=== PATIENT | female | born 1980 | race Caucasian/White ===

== ENCOUNTER 2016-08-12 19:46 | Inpatient (IN) | payer OTHER ==
[2016-08-12] MEDS ORDERED: DILTIAZEM 125 MG in SODIUM CHLORIDE 0.9% 100 ML IV ONE (19:59)
[2016-08-12] MEDS ORDERED: DILTIAZEM 5 MG/ML 5 ML VIAL IVP STA (20:03)
--- NOTE | 2016-08-12 20:03 | ED ---
General Adult HPI - General Source: patient, EMS, RN notes reviewed Mode of arrival: EMS Limitations: no limitations <Maximus Jean - Last Filed: 08/12/16 20:41> <Timmy De Los Santos - Last Filed: 08/12/16 23:57> - General Chief complaint: Arrhythmia/Palpitations Stated complaint: Palpitations Time Seen by Provider: 08/12/16 19:46 - History of Present Illness Initial comments: this is a 35-year-old female who has a past medical history significant for some sinus tachycardia but has not expressed.. Patient states she comes into the emergency department today because her heart was racing very fast. Patient states she has been vomiting and having diarrhea all day long today. Patient denies any fever chills. Patient denies any excess caffeine intake. Patient denies any illegal drugs. Patient denies any chest pain. Patient states she somewhat short of breath and does feel mildly lightheaded. Patient denies any nausea currently. Patient denies any abdominal pain. (Maximus Jean) - Related Data Home Medications Medication Instructions Recorded Confirmed Aspirin [Adult Low Dose Aspirin EC] 324 mg PO ONCE PRN 08/12/16 08/12/16 Allergies Allergy/AdvReac Type Severity Reaction Status Date / Time No Known Allergies Allergy Verified 08/12/16 20:14 Review of Systems ROS Other: All systems not noted in ROS Statement are negative. <Maximus Jean - Last Filed: 08/12/16 20:41> ROS Other: All systems not noted in ROS Statement are negative. <Timmy De Los Santos - Last Filed: 08/12/16 23:57> ROS Statement: Those systems with pertinent positive or pertinent negative responses have been documented in the HPI. Past Medical History Additional Past Medical History / Comment(s): tachycardia History of Any Multi-Drug Resistant Organisms: None Reported Past Surgical History: Section Past Psychological History: No Psychological Hx Reported Smoking Status: Never smoker Past Alcohol Use History: Occasional Past Drug Use History: None Reported <Maximus Jean - Last Filed: 08/12/16 20:41> General Exam Limitations: no limitations <Maximus Jean - Last Filed: 08/12/16 20:41> <Timmy De Los Santos - Last Filed: 08/12/16 23:57> - General Exam Comments Initial Comments: GENERAL: Patient is well-developed and well-nourished. Patient is nontoxic and well- hydrated and is in milddistress. ENT: Neck is soft and supple. No significant lymphadenopathy is noted. Oropharynx is clear. Moist mucous membranes. Neck has full range of motion without eliciting any pain. EYES: The sclera were anicteric and conjunctiva were pink and moist. Extraocular movements were intact and pupils were equal round and reactive to light. Eyelids were unremarkable. PULMONARY: Unlabored respirations. Good breath sounds bilaterally. No audible rales rhonchi or wheezing was noted. CARDIOVASCULAR: patient is tachycardic at about 170 beats a minute and heart rate is irregular ABDOMEN: Soft and nontender with normal bowel sounds. No palpable organomegaly was noted. There is no palpable pulsatile mass. SKIN: Skin is clear with no lesions or rashes and otherwise unremarkable. NEUROLOGIC: Patient is alert and oriented x3. Cranial nerves II through XII are grossly intact. Motor and sensory are also intact. Normal speech, volume and content. Symmetrical smile. MUSCULOSKELETAL: Normal extremities with adequate strength and full range of motion. No lower extremity swelling or edema. No calf tenderness. LYMPHATICS: No significant lymphadenopathy is noted PSYCHIATRIC: Normal psychiatric evaluation. Normal interpersonal interactions appears functionally intact in deals appropriately with others. No signs of depression. patient is mildly anxious (Maximus Jean) Medical Decision Making - Lab Data Result diagrams: 08/12/16 19:56 <Maximus Jean - Last Filed: 08/12/16 20:41> - Lab Data Result diagrams: 08/12/16 19:56 08/12/16 19:56 <Timmy De Los Santos - Last Filed: 08/12/16 23:57> - Medical Decision Making EKG shows atrial fibrillation with rapid ventricular response with occasional PVCs at a rate of 205 bpm QRS is under 48 QT interval is 224 QTC is 414. I started the patient on Cardizem after I gave the patient a 10 mg IV bolus of Cardizem. Dr. Perry will be taking over the care of this patient at 9 PM. (aMximus Jean ) I receive this patient as a sign out, pending the lab studies. I discussed results with the patient and family. I have arranged admission. Patient also to have supplementation of the electrolyte abnormalities. Patient feels better following medications here, though rate is not fully controlled yet. Will give another small bolus of Cardizem. (Timmy De Los Santos) - Lab Data Lab Results 08/12/16 08/12/16 08/12/16 Range/Units 19:56 19:56 19:56 WBC 8.6 (3.8-10.6) k/uL RBC 5.27 (3.80-5.40) m/uL Hgb 16.3 H (11.4-16.0) gm/dL Hct 47.9 H (34.0-46.0) % MCV 90.9 (80.0-100.0) fL MCH 31.0 (25.0-35.0) pg MCHC 34.1 (31.0-37.0) g/dL RDW 12.5 (11.5-15.5) % Plt Count 256 (150-450) k/uL Neutrophils % 82 % Lymphocytes % 12 % Monocytes % 3 % Eosinophils % 1 % Basophils % 0 % Neutrophils # 7.1 (1.3-7.7) k/uL Lymphocytes # 1.0 (1.0-4.8) k/uL Monocytes # 0.3 (0-1.0) k/uL Eosinophils # 0.1 (0-0.7) k/uL Basophils # 0.0 (0-0.2) k/uL PT (9.0-12.0) sec INR (<1.1) APTT (22.0-30.0) sec Sodium 142 (137-145) mmol/L Potassium 3.4 L (3.5-5.1) mmol/L Chloride 112 H (98-107) mmol/L Carbon Dioxide 13 L (22-30) mmol/L Anion Gap 17 mmol/L BUN 12 (7-17) mg/dL Creatinine 0.70 (0.52-1.04) mg/dL Est GFR (MDRD) Af Amer >60 (>60 ml/min/1.73 sqM) Est GFR (MDRD) Non-Af >60 (>60 ml/min/1.73 sqM) Glucose 119 H (74-99) mg/dL Calcium 9.0 (8.4-10.2) mg/dL Magnesium 1.5 L (1.6-2.3) mg/dL Total Bilirubin 0.9 (0.2-1.3) mg/dL AST 27 (14-36) U/L ALT 34 (9-52) U/L Alkaline Phosphatase 80 (38-126) U/L Total Creatine Kinase 94 (30-135) U/L CK-MB (CK-2) 1.0 (0.0-2.4) ng/mL CK-MB (CK-2) Rel Index 1.1 Troponin I <0.012 (0.000-0.034) ng/mL Total Protein 7.4 (6.3-8.2) g/dL Albumin 4.4 (3.5-5.0) g/dL TSH 1.930 (0.465-4.680) mIU/L Free T4 1.64 (0.78-2.19) ng/dL Urine Opiates Screen (NotDetected) Ur Oxycodone Screen (NotDetected) Urine Methadone Screen (NotDetected) Ur Propoxyphene Screen (NotDetected) Ur Barbiturates Screen (NotDetected) U Tricyclic Antidepress (NotDetected) Ur Phencyclidine Scrn (NotDetected) Ur Amphetamines Screen (NotDetected) U Methamphetamines Scrn (NotDetected) U Benzodiazepines Scrn (NotDetected) Urine Cocaine Screen (NotDetected) U Marijuana (THC) Screen (NotDetected) 08/12/16 08/12/16 Range/Units 19:56 19:56 WBC (3.8-10.6) k/uL RBC (3.80-5.40) m/uL Hgb (11.4-16.0) gm/dL Hct (34.0-46.0) % MCV (80.0-100.0) fL MCH (25.0-35.0) pg MCHC (31.0-37.0) g/dL RDW (11.5-15.5) % Plt Count (150-450) k/uL Neutrophils % % Lymphocytes % % Monocytes % % Eosinophils % % Basophils % % Neutrophils # (1.3-7.7) k/uL Lymphocytes # (1.0-4.8) k/uL Monocytes # (0-1.0) k/uL Eosinophils # (0-0.7) k/uL Basophils # (0-0.2) k/uL PT 10.6 (9.0-12.0) sec INR 1.0 (<1.1) APTT 22.9 (22.0-30.0) sec Sodium (137-145) mmol/L Potassium (3.5-5.1) mmol/L Chloride (98-107) mmol/L Carbon Dioxide (22-30) mmol/L Anion Gap mmol/L BUN (7-17) mg/dL Creatinine (0.52-1.04) mg/dL Est GFR (MDRD) Af Amer (>60 ml/min/1.73 sqM) Est GFR (MDRD) Non-Af (>60 ml/min/1.73 sqM) Glucose (74-99) mg/dL Calcium (8.4-10.2) mg/dL Magnesium (1.6-2.3) mg/dL Total Bilirubin (0.2-1.3) mg/dL AST (14-36) U/L ALT (9-52) U/L Alkaline Phosphatase (38-126) U/L Total Creatine Kinase (30-135) U/L CK-MB (CK-2) (0.0-2.4) ng/mL CK-MB (CK-2) Rel Index Troponin I (0.000-0.034) ng/mL Total Protein (6.3-8.2) g/dL Albumin (3.5-5.0) g/dL TSH (0.465-4.680) mIU/L Free T4 (0.78-2.19) ng/dL Urine Opiates Screen Not Detected (NotDetected) Ur Oxycodone Screen Not Detected (NotDetected) Urine Methadone Screen Not Detected (NotDetected) Ur Propoxyphene Screen Not Detected (NotDetected) Ur Barbiturates Screen Not Detected (NotDetected) U Tricyclic Antidepress Not Detected (NotDetected) Ur Phencyclidine Scrn Not Detected (NotDetected) Ur Amphetamines Screen Not Detected (NotDetected) U Methamphetamines Scrn Not Detected (NotDetected) U Benzodiazepines Scrn Not Detected (NotDetected) Urine Cocaine Screen Not Detected (NotDetected) U Marijuana (THC) Screen Not Detected (NotDetected) Disposition <Jean,Maximus - Last Filed: 08/12/16 20:41> <Timmy De Los Santos - Last Filed: 08/12/16 23:57> Clinical Impression: Atrial fibrillation, Hypomagnesemia, Hypokalemia Disposition: ADMITTED IP TO THIS HOSP Condition: Fair Referrals: Nonstaff,Physician [REFERRING] - 1-2 days
[2016-08-12] MEDS ORDERED: SODIUM CHLORIDE 0.9% 1,000 ML IV ONE (20:06)
[2016-08-12] MEDS ORDERED: DIPH,PERTUS(ACELL)TETVAC-LF 0.5 ML VIAL IM ONE (20:07)
[2016-08-12] MEDS ORDERED: ceFAZolin 1,000 MG in DEXTROSE/WATER 1 50ML.BAG IVPB STA (20:07)
[2016-08-12 20:33] LABS: Basophils % (A) 0 %; CH 31.8; CHCM 35.1; Eosinophils # (A) 0.1 k/uL (0-0.7); Eosinophils % (A) 1 %; HCT 47.9 % (34.0-46.0); HDW 2.52; HGB 16.3 gm/dL (11.4-16.0); Luc # (Auto) 0.15; Luc % (Auto) 2; Lymphocytes % (A) 12 %; MCHC 34.1 g/dL (31.0-37.0); MCV 90.9 fL (80.0-100.0); Mean Platelet Volume 7.3; Monocytes # (A) 0.3 k/uL (0-1.0); Monocytes % (A) 3 %; Neutrophils # (A) 7.1 k/uL (1.3-7.7); Neutrophils % (A) 82 %; RBC 5.27 m/uL (3.80-5.40); RDW 12.5 % (11.5-15.5); WBC 8.6 k/uL (3.8-10.6); WBC (Perox) 8.26
[2016-08-12 20:45] LABS: ALT 34 U/L (9-52); AST 27 U/L (14-36); Alkaline Phosphatase 80 U/L (38-126); Anion Gap 17 mmol/L; Blood Urea Nitrogen 12 mg/dL (7-17); Carbon Dioxide 13 mmol/L (22-30); Chloride 112 mmol/L (98-107); Glucose 119 mg/dL (74-99); Magnesium 1.5 mg/dL (1.6-2.3); Non-African American GFR(MDRD) >60 (>60 ml/min/1.73 sqM); Potassium 3.4 mmol/L (3.5-5.1); Sodium 142 mmol/L (137-145); Total Bilirubin 0.9 mg/dL (0.2-1.3); Total Protein 7.4 g/dL (6.3-8.2)
[2016-08-12 20:46] LABS: Partial Thromboplastin Time 22.9 sec (22.0-30.0); Prothrombin Time 10.6 sec (9.0-12.0)
[2016-08-12 21:10] LABS: Creatine Kinase 94 U/L (30-135)
[2016-08-12] MEDS ORDERED: HEPARIN SODIUM,PORCINE 5,000 UNIT/ML 1 ML VIAL IV ONE (21:11)
--- NOTE | 2016-08-12 21:14 | XR ---
EXAMINATION TYPE: XR chest 2V DATE OF EXAM: 08/12/2016 8:58 PM COMPARISON: NONE HISTORY: Chest pain TECHNIQUE: Frontal and lateral views of the chest are obtained. FINDINGS: There is no focal air space opacity. No evidence for pnuemothorax.No pleural effusion. The cardiac silhouette size is within normal limits. The osseous structures are grossly intact. IMPRESSION: 1. No acute cardiopulmonary process.
[2016-08-12] MEDS ORDERED: HEPARIN SODIUM,PORCINE/D5W PMX 25,000 UNIT in DEXTROSE/WATER 1 500ML.BAG IV SCH (21:15)
[2016-08-12 21:23] LABS: Troponin I <0.012 ng/mL (0.000-0.034)
[2016-08-12] MEDS ORDERED: MAGNESIUM SULFATE-D5W PMX 1 GM in DEXTROSE/WATER 1 100ML.BAG IVPB ONE (22:57)
[2016-08-12] MEDS ORDERED: POTASSIUM BICARB-CITRIC ACID 25 MEQ TABLET.EFF PO STA (22:57)
[2016-08-12] MEDS ORDERED: NITROGLYCERIN SL TABS 0.4 MG TAB SUBLINGUAL PRN (23:51)
[2016-08-13 01:11] VITALS: BMI 27.4
[2016-08-13 03:13] LABS: Creatine Kinase MB 1.1 ng/mL (0.0-2.4)
[2016-08-13 03:20] LABS: Troponin I 0.037 ng/mL (0.000-0.034)
[2016-08-13] MEDS: SODIUM CHLORIDE 0.9% 1,000 ML IV SCH ×3 (06:24→11:24)
[2016-08-13 07:20] LABS: Cholesterol 139 mg/dL (<200); HDL Cholesterol 64 mg/dL (40-60); Triglycerides 78 mg/dL (<150)
[2016-08-13 07:30] LABS: Creatine Kinase MB 0.9 ng/mL (0.0-2.4)
[2016-08-13 07:34] LABS: Troponin I 0.039 ng/mL (0.000-0.034)
[2016-08-13] MEDS ORDERED: MAGNESIUM OXIDE 400 MG TAB PO SCH (09:00)
[2016-08-13] MEDS ORDERED: POTASSIUM CHLORIDE ER 20 MEQ TAB.ER PO SCH (09:00)
[2016-08-13] MEDS ORDERED: ASPIRIN 325 MG TAB PO SCH (09:00)
[2016-08-13 10:35] LABS: Anion Gap 10 mmol/L; Blood Urea Nitrogen 10 mg/dL (7-17); Calcium 8.1 mg/dL (8.4-10.2); Carbon Dioxide 16 mmol/L (22-30); Chloride 112 mmol/L (98-107); Glucose 97 mg/dL (74-99); Non-African American GFR(MDRD) >60 (>60 ml/min/1.73 sqM); Potassium 4.2 mmol/L (3.5-5.1); Sodium 138 mmol/L (137-145)
[2016-08-13 10:39] LABS: Basophils % (A) 0 %; CH 31.4; CHCM 33.9; Eosinophils # (A) 0.1 k/uL (0-0.7); Eosinophils % (A) 2 %; HDW 2.49; HGB 14.8 gm/dL (11.4-16.0); Luc # (Auto) 0.14; Luc % (Auto) 2; Lymphocytes # (A) 1.2 k/uL (1.0-4.8); Lymphocytes % (A) 19 %; MCH 31.3 pg (25.0-35.0); MCHC 33.7 g/dL (31.0-37.0); MCV 92.8 fL (80.0-100.0); Mean Platelet Volume 7.5; Monocytes # (A) 0.5 k/uL (0-1.0); Monocytes % (A) 8 %; Neutrophils # (A) 4.3 k/uL (1.3-7.7); Neutrophils % (A) 68 %; RBC 4.74 m/uL (3.80-5.40); RDW 12.3 % (11.5-15.5); WBC 6.3 k/uL (3.8-10.6)
[2016-08-13] MEDS ORDERED: FLECAINIDE 50 MG TAB PO STA (10:56)
[2016-08-13] MEDS ORDERED: ENOXAPARIN 80 MG/0.8 ML SYRINGE SQ STA (10:57)
--- NOTE | 2016-08-13 11:23 | CONS ---
DATE OF CONSULTATION: Monica Tony is a 35-year-old female who started experiencing abdominal discomfort, crampy, nausea and vomiting and retching. After doing this several times, she started experiencing palpitations. She is not sure if she came down with a viral syndrome or not (GI). When her heart started to race, she called EMS and came into the hospital. She was found to be in atrial fibrillation with a rapid ventricular response at 205 beats per minute, narrow QRS. Her hemoglobin is normal. White count is normal, potassium is 3.4, bicarb 13, troponins are borderline. TSH is normal. She was started on IV heparin and on rate control medications, Cardizem and monitored overnight. This morning when I spoke to her she stated that she would get tachycardia as a teenager and the episodes would last only 15 to 20 minutes. Every time she would go to the hospital, she would be in normal rhythm and therefore no diagnoses ever made, except on an event monitor, but she did not have any treatment for it nor did she have any radiofrequency ablation performed. This was diagnosis in [facility] by ( ). PAST HISTORY: She denies hypertension, diabetes, dyslipidemia, DVT, any thyroid problems. Family history of atrial fibrillation. Both her grandparents have atrial fibrillation. Her parents do not have atrial fibrillation or SVT. REVIEW OF SYSTEMS: No fever, chills, or rigors. No cough or expectoration. She did have nausea, vomiting, retching and abdominal discomfort. No hematuria or dysuria. No strokes or seizure. No skin lesions or musculoskeletal complaints. On examination, she is resting comfortably in bed. She has actually converted to sinus rhythm now spontaneously, before she could flecainide. She is afebrile, 97.2, pulse rate is107 beats a minute. She is now in sinus rhythm. Head and neck examination are normal. Heart sounds are normal. No murmurs or gallops. Lungs are clear to auscultation. Extremities are warm. No edema. IMPRESSION: 1. Paroxysmal atrial fibrillation lasting for less than 24 hours, spontaneous conversion, before flecainide could be given. 2. History of supraventricular tachycardia, short runs as a teenager, but she has not had any recent supraventricular tachycardia. 3. LILLIAN-VASC score is 1 (female gender). SUGGEST: I would still like to test her with flecainide 150 mg p.o. x1 dose, get a 12-lead ECG about 2 to 3 hours later to make it is normal and then discharge her home. Heparin and diltiazem could be stopped. She could be given a dose of Lovenox 80 mg x1, but she does not need long-term anticoagulation. Her atrial fibrillation lasts for less than 24 hours. I had a detailed discussion with her regarding the management of atrial fibrillation. If these are infrequent episodes, then a [id number]-pocket technique would be appropriate that is why I would like to test her on flecainide before she leaves. If the episodes become frequent and problematic, then antiarrhythmic therapy such as drug therapy or pulmonary vein isolation can be considered, but at this point this is the first episode and I would simply observe her for now. I will see her in the office again and reevaluate her. She did have a troponin leak, but she has no chest pain, no discomfort. No breathing trouble and her heart rate was over 205 beats a minute.
--- NOTE | 2016-08-13 13:08 | P.HPIM ---
History of Present Illness H&P Date: 08/13/16 34-year-old female with some history of tachyarrhythmias while she was a child comes in the hospital with the sudden onset tachycardia with associated the diaphoresis and episode of emesis. Patient noted that the she is had symptoms of palpitations in the past however only last about 5 seconds however yesterday no persistent which caused her to have diaphoresis and thereafter vomited. In the emergency room patient was noted to be in atrial fibrillation with rapid ventricular rate. Patient denies having any associated chest pain nausea vomiting after her symptoms were controlled denies there is any chance she is no recent illnesses were reported Patient's thyroid function within normal limits denies a any smoking exposure No family history of cardiac abnormalities were reported as well Review of Systems All systems: negative (Noted in HPI) Past Medical History Additional Past Medical History / Comment(s): tachycardia as child History of Any Multi-Drug Resistant Organisms: None Reported Past Surgical History: Section Past Anesthesia/Blood Transfusion Reactions: No Reported Reaction Past Psychological History: No Psychological Hx Reported Smoking Status: Never smoker Past Alcohol Use History: Occasional Past Drug Use History: None Reported - Past Family History Father Family Medical History: No Reported History Medications and Allergies Home Medications Medication Instructions Recorded Confirmed Type Aspirin [Adult Low Dose Aspirin EC] 324 mg PO ONCE PRN 08/12/16 08/12/16 History Allergies Allergy/AdvReac Type Severity Reaction Status Date / Time No Known Allergies Allergy Verified 08/12/16 20:14 Physical Exam Vitals: Vital Signs Temp Pulse Pulse Resp BP BP Pulse Ox 08/13/16 11:57 83 16 08/13/16 11:55 97.6 F 83 16 112/72 99 08/13/16 08:00 97.2 F L 107 H 18 109/67 98 08/13/16 07:07 96 08/13/16 04:00 97.1 F L 88 16 102/55 96 08/13/16 00:53 97.1 F L 123 H 16 111/75 98 08/12/16 23:48 132 H 18 118/93 96 08/12/16 23:07 97.4 F L 120 H 18 131/73 97 08/12/16 22:18 99.1 F 144 H 18 140/84 98 08/12/16 21:29 99.0 F 140 H 18 132/88 97 08/12/16 20:27 150 H 121/88 99 08/12/16 19:57 180 H 177 H 20 96 08/12/16 19:52 97.5 F L 170 H 18 146/115 98 Intake and Output 08/12/16 08/13/16 08/13/16 22:59 06:59 14:59 Intake Total 195.764 Balance 195.764 Intake: Intake, IV Titration 195.764 Amount Heparin Sodium,Porcine/ 195.764 D5w Pmx 25,000 unit In Dextrose/Water 1 500ml. bag @ 12 UNITS/KG/HR 17. 96 mls/hr IV .Q24H HIGINIO Rx #:[id number] Other: # Voids 1 Weight 74.843 kg 74.8 kg 74.8 kg Patient Weight 08/14/16 06:59 Weight 74.8 kg Physical exam Gen. appearance oriented 3 in no distress Neck is supple no JVD Lungs good air entry clear to auscultation no rhonchi or wheezing Heart S1-S2 heard regular rate and rhythm no murmurs appreciated Abdomen is soft nontender no organomegaly bowel sounds are intact Neurologically cranial nerves II-12 grossly intact no focal motor or sensory deficits noted Skin no abnormalities appreciated Results CBC & Chem 7: 08/13/16 06:43 08/13/16 06:43 Labs: Abnormal Lab Results - Last 24 Hours (Table) 08/12/16 08/12/16 08/13/16 Range/Units 19:56 19:56 02:14 Hgb 16.3 H (11.4-16.0) gm/dL Hct 47.9 H (34.0-46.0) % APTT (22.0-30.0) sec Potassium 3.4 L (3.5-5.1) mmol/L Chloride 112 H (98-107) mmol/L Carbon Dioxide 13 L (22-30) mmol/L Glucose 119 H (74-99) mg/dL Calcium (8.4-10.2) mg/dL Magnesium 1.5 L (1.6-2.3) mg/dL Troponin I 0.037 H* (0.000-0.034) ng/mL HDL Cholesterol (40-60) mg/dL 08/13/16 08/13/16 08/13/16 Range/Units 06:43 06:43 06:43 Hgb (11.4-16.0) gm/dL Hct (34.0-46.0) % APTT 37.2 H (22.0-30.0) sec Potassium (3.5-5.1) mmol/L Chloride (98-107) mmol/L Carbon Dioxide (22-30) mmol/L Glucose (74-99) mg/dL Calcium (8.4-10.2) mg/dL Magnesium (1.6-2.3) mg/dL Troponin I 0.039 H* (0.000-0.034) ng/mL HDL Cholesterol 64 H (40-60) mg/dL 08/13/16 Range/Units 06:43 Hgb (11.4-16.0) gm/dL Hct (34.0-46.0) % APTT (22.0-30.0) sec Potassium (3.5-5.1) mmol/L Chloride 112 H (98-107) mmol/L Carbon Dioxide 16 L (22-30) mmol/L Glucose (74-99) mg/dL Calcium 8.1 L (8.4-10.2) mg/dL Magnesium (1.6-2.3) mg/dL Troponin I (0.000-0.034) ng/mL HDL Cholesterol (40-60) mg/dL Thrombosis Risk Factor Assmnt - Choose All That Apply Any of the Below Risk Factors Present?: Yes Assessment and Plan Plan: #1 atrial fibrillation new onset currently converted into sinus rhythm #2 non-anion gap metabolic acidosis likely secondary to episodes of vomiting Plan Continue with IV fluids at this time repeat labs in the a.m. Continue flecainide and as recommended by EP Anticoagulation Obtain echocardiogram to delineate risk factors of stroke in this patient
[2016-08-14] MEDS: SODIUM CHLORIDE 0.9% 1,000 ML IV SCH (06:37)
[2016-08-14 10:25] VITALS: TEMP 97.7
[2016-08-14 12:07] VITALS: BP 132/81; PULSE 74; RESP 16
--- NOTE | 2016-08-14 12:40 | PN ---
Benita Robert is still in the hospital ( ) for discharge yesterday. After testing with 150 mg of flecainide, the ECG following that was normal without any ST segment abnormalities. Overnight she has not had any episodes of atrial fibrillation. She has done well. No chest discomfort. Heart sounds are normal. Breath sounds are normal. Extremities are warm. No edema. Labs are reviewed. She does have a borderline troponin rise of 0.037, 0.039. She came in with ( ) RVR. She had a viral syndrome and retching. Her TSH is normal. She chest pain free. She has no atrial fibrillation. She has no history of hypertension, diabetes, dyslipidemia or no thyroid problems. Ben Vasc score is 1. IMPRESSION: 1. Paroxysmal atrial fibrillation with spontaneous termination. 2. Patient tolerated flecainide 150 mg x1 without any ECG changes. 3. Borderline troponin is likely demand ischemia. 4. The patient has no risk factors for coronary artery disease. His Ben-Vasc score is 1. 5. She has a history of recurrent palpitations and was told she had supraventricular tachycardia, but this was many years back as a teenager. PLAN: She will go home from a cardiac standpoint, p.r.n. use of flecainide and cardiac re-evaluation as an outpatient. A 2-D echo and Doppler study as well as exercise stress test will be performed.
--- NOTE | 2016-08-14 15:37 | P.DS ---
Providers Date of admission: 08/12/16 23:52 Attending physician: Citlalli Quiroz Consults: 08/12/16 23:52 Consult Physician Routine Consulting Provider: Gemini Morales Consult Reason/Comments: New onset atrial fibrillation Do you want consulting provider notified?: Yes Primary care physician: Kaleb [facility] Course: 34-year-old female with some history of tachyarrhythmias while she was a child comes in the hospital with the sudden onset tachycardia with associated the diaphoresis and episode of emesis. Patient noted that the she is had symptoms of palpitations in the past however only last about 5 seconds however yesterday no persistent which caused her to have diaphoresis and thereafter vomited. In the emergency room patient was noted to be in atrial fibrillation with rapid ventricular rate. Patient denies having any associated chest pain nausea vomiting after her symptoms were controlled denies there is any chance she is no recent illnesses were reported Patient's thyroid function within normal limits denies a any smoking exposure No family history of cardiac abnormalities were reported as well 08/14/2016 Patient is doing well no further episodes of nausea vomiting. Physical exam Gen. appearance oriented 3 in no distress Neck is supple no JVD Lungs good air entry clear to auscultation no rhonchi or wheezing Heart S1-S2 heard regular rate and rhythm no murmurs appreciated Abdomen is soft nontender no organomegaly bowel sounds are intact Neurologically cranial nerves II-12 grossly intact no focal motor or sensory deficits noted Skin no abnormalities appreciated Thrombosis Risk Factor Assmnt - Choose All That Apply Any of the Below Risk Factors Present?: Yes Assessment and Plan Plan: #1 atrial fibrillation new onset currently converted into sinus rhythm #2 non-anion gap metabolic acidosis likely secondary to episodes of vomiting. Is improving no anion gap Encourage oral intake Aspirin on discharge CHADSVASC of 1. Pill in the pocket approach with Fleicanide Patient Condition at Discharge: Fair Plan - Discharge Summary New Discharge Prescriptions: Aspirin EC [Ecotrin] 325 mg PO DAILY #30 tablet. Flecainide [Tambocor] 100 mg PO DAILY PRN #7 tablet PRN Reason: Tachyarrhythmias Discharge Medication List Aspirin [Adult Low Dose Aspirin EC] 324 mg PO ONCE PRN 08/12/16 [History] Aspirin EC [Ecotrin] 325 mg PO DAILY #30 tablet. 08/14/16 [Rx] Flecainide [Tambocor] 100 mg PO DAILY PRN #7 tablet 08/14/16 [Rx] Follow up Appointment(s)/Referral(s): Ron Stephens MD [STAFF PHYSICIAN] - 1 Week (Dr. Stephens's office will be calling you with a follow up appointment) Nonstaff,Physician [REFERRING] - 1-2 days Patient Instructions/Handouts: Atrial Fibrillation (DC), Hypokalemia (DC), Hypomagnesemia (DC) Discharge Disposition: HOME SELF-CARE
== END 2016-08-14 13:22 | disposition home or self-care (01) | DRG 309 ==
LOC: EC 19:46 → 6SEL 23:52
PROVIDERS: ADMIT Internal Medicine; ATTEND Internal Medicine
PROC: 3E0234Z Introduction of Serum, Toxoid and Vaccine into Muscle, Percutaneous Approach (ICD-10-PCS; principal; 2016-08-12)
DX: I48.0 Paroxysmal atrial fibrillation (principal); E87.2 Acidosis; I24.8 Other forms of acute ischemic heart disease; E83.42 Hypomagnesemia; E87.6 Hypokalemia; B34.9 Viral infection, unspecified; Z23 Encounter for immunization; Z79.82 Long term (current) use of aspirin
CPT/HCPCS: 36415; 71020; 80048; 80053; 80061; 80306; 82550; 82553; 83735; 84439; 84443; 84484; 85025; 85610; 85730; 93005; 94760

== ENCOUNTER → 2017-08-26 | Outpatient (CLI) | payer OTHER ==
--- NOTE | 2017-08-26 18:20 | CONS ---
CONSULTATION DATE OF SERVICE: 08/26/2017. INDICATIONS: A 36-year-old lady has been evaluated in Sleep Center for difficulties to initiate sleep and multiple awakenings from sleep. The patient was referred to the Sleep Center also by the manager recruitment, for history of paroxysmal atrial fibrillation. HISTORY OF PRESENT ILLNESS/SLEEP WAKE EVALUATION: Patient's usual sleep schedule on working days is from 11 p.m. until 7:30 a.m. and on weekends from 11 p.m. to 8:30 a.m. She may have problem with falling asleep for about 1 hour. When she goes to bed she starts to think about her problems and that may not let her fall asleep quickly. She does not watch TV in bedroom and does not read in bedroom. During the sleep, she usually sleeps on the side, but also sleeps in different positions. She has a lot of movement at night. She wakes up from sleep about 5 times with up to one episode of nocturia. In the morning patient wakes up tired, has problems with concentration, worries about her sleep. Usually she does not take naps. Should drinks around 3 coffees a day. [place] Sleepiness Scale is 1. PAST MEDICAL HISTORY: Positive for episodes of paroxysmal atrial fibrillation. PAST SURGICAL HISTORY: x2 and surgery on right arm for fracture of radius in the past. MEDICATION: Flecainide on p.r.n. basis if the patient develops any episodes of atrial fibrillation. SOCIAL HISTORY: Negative for smoking. Alcohol consumption occasional. FAMILY HISTORY: Hypertension, heart problems, thyroid problems, acid reflux. REVIEW OF SYSTEMS: Difficulties to initiate sleep, multiple awakenings from sleep. The patient has regular menstrual periods for about 4 days long. PHYSICAL EXAM: A 36-year-old lady without distress. BP 131/86, HR 76, RR 16, height 5 feet 4- 1/2 inches, weight 165.6, BMI 27.8, temperature 97.6, oxygen saturation room air 99%. HEENT: PERRLA, EOMI, evaluation of oropharynx showed tongue protrudes midline. Moderately low to normal position of soft palate. Restriction of nasal breathing on the left side. NECK: Supple, no JVD. Thyroid is not palpable. Neck 14 inches in circumference. LUNGS: Clear to percussion and to auscultation. Good air exchange. No wheezing or rhonchi. HEART: S1, S2 regular. No murmurs, gallops, or rubs. ABDOMEN: Soft and nontender. Bowel sounds are present. No organomegaly appreciated. EXTREMITIES: No clubbing or cyanosis. SINTERING PRESS OPERATOR: Awake, alert, and oriented X3. Cranial nerves 2 to 7 intact. There is no fasciculation or atrophy. noted. No focal deficits observed. IMPRESSION: 1. Multiple awakenings from sleep about 5 times, with up to one episode of nocturia, restriction of nasal breathing, possible obstructive sleep apnea-hypopnea syndrome. 2. Significant amount of movements at night; rule out periodic limb movements. 3. History of paroxysmal atrial fibrillation. 4. Status post x2. 5. Status post right arm radius fracture and treatment. 6. Psychophysiological insomnia. PLAN: 1. I discussed with the patient, the psychological technique for treatment of insomnia including her stimulus control, paradoxical intention, worry time. 2. Polysomnography for evaluation of patient's breathing during sleep and also to check for possibility of periodic limb movements. 3. CPAP/BiPAP titration if sleep study confirms obstructive sleep apnea-hypopnea syndrome. 4. Preferable position during sleep on the side. 5. No driving if patient feels any sleepiness. 6. I will see patient for follow up visit to explain results of testing and following plan. Thank you very much for asking me to see this patient in consultation. Sincerely, Miguel Buchanan MD, PhD, FAASM Diplomat of [employer] [place] [employer] [place] [employer] Geographic Information System Surveyor of [facility] [place] MMODL / IJN: [id number] /
== END | disposition home or self-care (01) ==
LOC: SLEEP 15:25
PROVIDERS: ATTEND Internal Medicine
DX: G47.9 Sleep disorder, unspecified (principal); Z86.79 Personal history of other diseases of the circulatory system; Z98.890 Other specified postprocedural states
CPT/HCPCS: 99211

== ENCOUNTER → 2017-12-09 | Outpatient (CLI) | payer OTHER ==
--- NOTE | 2017-12-09 13:11 | SFUN ---
SLEEP CENTER FOLLOW UP NOTE DATE OF SERVICE: 12/09/2017 A 37-year-old lady who has been followed in sleep center to discuss results of her polysomnogram. Patient had one episode of atrial fibrillation in the past. No abnormalities recently. I discussed results of sleep study with patient in details. No significant respiratory abnormalities have been documented. Only one episode of hypopnea. Normal oxygenation during the sleep. Lowest oxygen level 93.2%. Heart rate in the range between 49 and 91. No periodic limb movements have been documented. Sleep efficiency was decreased to 61.3% with acceptable latency sleep onset 25.5 minutes. Amount of REM sleep was decreased to 4.3%, which might decrease sensitivity of the test for obstructive sleep apnea-hypopnea syndrome because some of the patient;s more abnormalities of respiration happened in REM sleep. The patient indicated that usually she is sleeps better at home. MEDICATIONS: Flecainide on p.r.n. basis. PHYSICAL EXAMINATION: During physical exam, patient in no distress. VITAL SIGNS: BP on the right arm 143/102, on the left arm 157/100, HR 78, RR 16 , temp 98.5, oxygen saturation room air 98%. HEENT: PERRLA, EOMI. Oropharynx moderately low position of soft palate. NECK: Supple, no JVD. Thyroid is not palpable. LUNGS: Clear to percussion and to auscultation. Good air exchange. No wheezing or rhonchi. HEART: S1, S2 regular. No murmurs, gallops, or rubs. ABDOMEN: Soft and nontender. Bowel sounds are present. No organomegaly appreciated. EXTREMITIES: No clubbing or cyanosis. PHYSICIAN ASST: Awake, alert, and oriented X3. Cranial nerves 2 to 7 intact. There is no fasciculation or atrophy. noted. No focal deficits observed. IMPRESSION: 1. No significant respiratory abnormalities by results of polysomnogram. 2. History of one episode of atrial fibrillation. 3. Status post x2. 4. Status post right arm fracture in the past. PLAN: 1. Sleep hygiene with regular time bed for 8 hours. 2. Preferable position during the sleep on the side. 3. Psychological techniques for treatment of possible insomnia should include stimulus control, paradoxical intention, worry time if necessary. 4. Watching and losing weight. 5. We might consider to repeat a sleep study at home because at home patient is sleeping better. 6. Monitoring of blood pressure, low-sodium diet. Thank you very much for allowing me to participate in management of your patient. Sincerely, Miguel Buchanan MD, PhD, FAASM Diplomat of [place] [employer] [place] [employer] Wastewater Treatment Operator of [facility] [place] MMODL / HAY: [id number] / MTDD
== END | disposition home or self-care (01) ==
LOC: SLEEP 11:43
PROVIDERS: ATTEND Internal Medicine
DX: I48.91 Unspecified atrial fibrillation (principal); Z98.890 Other specified postprocedural states; Z87.81 Personal history of (healed) traumatic fracture; Z79.899 Other long term (current) drug therapy